=== PATIENT | male | born 1995 | race African-American/Black ===

== ENCOUNTER 2017-11-13 11:32 | Emergency (ER) | payer OTHER ==
[~2017-11-13] VITALS: Ht 175.3 cm; Wt 80.0 kg
[~2017-11-13 11:32] MED LIST: AMOX875 PO; PRED50 PO
[2017-11-13 11:40] VITALS: BP 138/76; PULSE 63; RESP 17; TEMP 98.4; O2SAT 100
[2017-11-13] MEDS ORDERED: predniSONE 20 MG TAB PO ONE (12:00)
[2017-11-13] MEDS ORDERED: VENTAER INH (12:06)
[2017-11-13] MEDS ORDERED: PRED-503 PO (12:06)
--- NOTE | 2017-11-13 12:06 | PD ---
HPI Chief Complaint: Respiratory Symptoms Time Seen by Provider: 11:49 Travel History International Travel<30 days: No Contact w/Intl Traveler<30days: No Traveled to known affect area: No History of Present Illness HPI 22-year-old male, with history of asthma, presents to the emergency department with complaint of asthma exacerbation since last night. Says he thinks it is related to dust in his dorm room. Reports chest tightness, shortness of breath , wheezing. Denies fever, vomiting. Denies recent illness. Used his albuterol inhaler last last night for symptom management. Symptoms are mild to moderate in severity. Possibly aggravated by dust. No known relieving factors. Has a primary care provider in [place] he can follow-up with. No known allergies. History of asthma. Denies other significant past medical history. Has no other medical complaints. No other modifying factors or associated signs and symptoms. PFSH Past Medical History Asthma: Yes Respiratory: Yes (ASTHMA) Immunizations Current: Yes Past Surgical History Other Surgery: Yes (I & D OF LEFT ARM IN 2010, GUILHERME METAL) Social History Alcohol Use: No Tobacco Use: No Substance Use: No Allergies-Medications (Allergen,Severity, Reaction): Coded Allergies: No Known Allergies (Unverified Adverse Reaction, Unknown, 11/13/17) Reported Meds & Prescriptions Reported Meds & Active Scripts Active Ventolin Hfa 18 GM Inh (Albuterol Sulfate) 90 Mcg/Act Aer 2 Puff INH Q4-6H PRN Deltasone (Prednisone) 20 Mg Tab 40 Mg PO DAILY 4 Days START 11/14/2017 Deltasone 50 Mg Tab (Prednisone) 50 Mg Tab 50 Mg PO DAILY 5 Days Amoxicillin 875 Mg Tab 875 Mg PO BID Review of Systems Except as stated in HPI: all other systems reviewed are Neg Physical Exam Narrative GENERAL: Well-nourished, well-developed black male patient, in no acute distress ; afebrile, nontoxic-appearing SKIN: Warm and dry. HEAD: Atraumatic. Normocephalic. EYES: Pupils equal and round. No scleral icterus. No injection or drainage. ENT: Mucosa pink and moist. Airway patent. EARS: Bilateral pinnae and external canals appear within normal limits. NECK: Trachea midline. No lymphadenopathy. CARDIOVASCULAR: Regular rate and rhythm. No murmur appreciated. RESPIRATORY: No accessory muscle use. Lungs with decreased lung sounds throughout to auscultation; lung sounds are tight. Breath sounds equal bilaterally. No retractions or tachypnea. No Audible wheezing noted. GASTROINTESTINAL: Flat. MUSCULOSKELETAL: No obvious deformities. No clubbing. No cyanosis. No edema. NEUROLOGICAL: Awake and alert. Oriented 3. No obvious cranial nerve deficits. Motor grossly within normal limits. Normal speech. Moves all extremities. 5/5 strength to all extremities. PSYCHIATRIC: Appropriate mood and affect; insight and judgment normal. Data Data Last Documented VS Vital Signs Date Time Temp Pulse Resp B/P (MAP) Pulse Ox O2 Delivery O2 Flow Rate FiO2 11/13/17 11:40 98.4 63 17 138/76 (96) 100 Orders Orders Prednisone (Deltasone) (11/13/17 12:00) Albuterol-Ipratropium Neb (Duoneb Neb) (11/13/17 12:00) [facility] Medical Decision Making Medical Screen Exam Complete: Yes Emergency Medical Condition: Yes Medical Record Reviewed: Yes Differential Diagnosis Asthma exacerbation, bronchiolitis, pneumonia Narrative Course 22-year-old male with history of asthma with asthma exacerbation. He is in no acute distress. No retractions or tachypnea. Oxygen saturation is 100% on room air. Lungs with decreased lung sounds throughout. Deltasone and DuoNeb 2 ordered. 1253: On reexamination the patient reports improvement in symptoms. Denies chest tightness, shortness of breath. Lungs are clear and equal throughout. Deltasone and Ventolin inhaler prescribed for home. Instructed patient to follow up with primary care provider. Patient verbalizes understanding and agreement with treatment plan. Patient is medically cleared and stable for discharge. Discussed reasons to return to the emergency department. Patient agrees with treatment plan. The patients vital signs are stable and the patient is stable for outpatient follow-up and treatment. Patient discharged home, stable and in no acute distress. Diagnosis Primary Impression: Asthma exacerbation Qualified Codes: J45.901 - Unspecified asthma with (acute) exacerbation Referrals: Primary Care Physician Patient Instructions: Asthma (ED), General Instructions Additional Instructions: Use albuterol inhaler as needed for shortness of breath and/or wheezing Take oral steroids as prescribed and complete full course Avoid asthma triggers such as smoking cigarettes, second hand smoke, dust, known allergens Follow-up with primary care provider Return to emergency department immediately with worsening of symptoms Med/Other Pt SpecificInfo: Prescription(s) given Scripts Albuterol 18 GM Inh (Ventolin Hfa 18 GM Inh) 90 Mcg/Act Aer 2 PUFF INH Q4-6H Y for SOB/WHEEZING, #1 INHALER 0 Refills Prov: Susy Corley 11/13/17 Prednisone (Deltasone) 20 Mg Tab 40 MG PO DAILY for 4 Days, #8 TAB 0 Refills START 11/14/2017 Prov: Susy Corley 11/13/17 Disposition: 01 DISCHARGE HOME Condition: Stable Susy Corley Nov 13, 2017 12:06
[2017-11-13] MEDS: RESP: ALBUTEROL 2.5 MG/IPRATROPIUM 0.5 MG NEB (SCH) INH (12:20)
== END 2017-11-13 12:51 | disposition home or self-care (01) ==
LOC: NEPK 11:32
DX: J45.901 Unspecified asthma with (acute) exacerbation (principal)
CPT/HCPCS: 94640; 94664; 99283; J7512